=== PATIENT | female | born 1980 | race Caucasian/White ===

== ENCOUNTER 2024-03-12 20:04 | Emergency (ER) | payer OTHER ==
[~2024-03-12] VITALS: Ht 157.5 cm; Wt 86.9 kg
[2024-03-12 20:15] VITALS: BP 131/63; PULSE 107; RESP 20; TEMP 98.1; O2SAT 97
[2024-03-12] MEDS ORDERED: HYDR-3682 PO (21:39)
[2024-03-12] MEDS: DexAMETHasone SOD PHOS 10MG/1ML VIAL INJ IM ONE (22:01)
== END 2024-03-12 22:07 | disposition home or self-care (01) ==
LOC: ER 20:04
DX: T78.40XA Allergy, unspecified, initial encounter (principal); Z88.1 Allergy status to other antibiotic agents; X58.XXXA Exposure to other specified factors, initial encounter
CPT/HCPCS: 96372; 99283; J1100